=== PATIENT | male | born 1960 | race Caucasian/White ===

== ENCOUNTER 2024-05-20 10:22 | Inpatient (IN) | payer BC ==
[~2024-05-20] VITALS: Ht 182.9 cm; Wt 86.8 kg
[2024-05-20] MEDS ORDERED: metformin (10:32)
[2024-05-20] MEDS ORDERED: panadol (10:32)
[2024-05-20] MEDS ORDERED: GABPENTIN (10:32)
[2024-05-20] MEDS ORDERED: hydralazine (10:32)
[2024-05-20 11:23] LABS: BASOPHILS % 1.3 % (0.0-2.0); DIFFERENTIAL COMMENT 0; EOSINOPHILS % 0.2 % (0.0-5.0); LYMPHOCYTES % 9.4 % (20.0-50.0); MEAN CORPUSCULAR HEMOGLOBIN 24.6 pg (28.0-32.0); MEAN CORPUSCULAR VOLUME 79.3 fL (80.0-94.0); MEAN PLATELET VOLUME 7.3 fl (7.4-10.4); MONOCYTES % 9.5 % (2.0-8.0); NEUTROPHILS % 79.6 % (40.0-76.0); PLATELET 562 x1000/uL (130-400); RED BLOOD CELL COUNT 2.83 mill/uL (4.7-6.1); RED CELL DISTRIBUTION WIDTH 20.7 % (11.6-14.6); WHITE BLOOD COUNT 10.4 x1000/uL (4.5-11.0)
[2024-05-20 11:24] LABS: CHLORIDE 101 mEq/L (98-107); POTASSIUM 5.8 mEq/L (3.5-5.1); SODIUM 133 mEq/L (136-145)
[2024-05-20 11:25] LABS: CARBON DIOXIDE 20 mEq/L (21-32)
[2024-05-20 11:28] LABS: INR 1.2
[2024-05-20] MEDS: SODIUM CHLORIDE 0.9% 1,000 ML IV ONE (11:28)
[2024-05-20 11:29] LABS: HEMATOCRIT. 22.4 % (42.0-52.0)
[2024-05-20 11:30] LABS: AMMONIA < 17 uMol/L (<32); CREATININE 2.3 mg/dL (0.6-1.3); GLUCOSE 113 mg/dL (70-105); TROPONIN I HIGH SENSITIVITY 21 ng/L (3.0-53); UREA NITROGEN BLOOD 40 mg/dL (9-23)
[2024-05-20 11:32] LABS: ACETAMINOPHEN < 2 ug/mL (10-30); ALANINE AMINOTRANSFERASE 24 IU/L (10-49); ALBUMIN 3.7 g/dL (3.2-4.8); ASPARTATE AMINOTRANSFERASE 35 IU/L (<34); BILIRUBIN TOTAL 0.4 mg/dL (0.1-1.0); PROTEIN TOTAL 7.5 g/dL (6.0-8.3)
[2024-05-20 11:34] LABS: THYROID STIMULATING HORMONE 1.42 uIU/mL (0.55-4.78)
[2024-05-20 11:38] LABS: ETHANOL BLOOD < 10 mg/dL (<10)
[2024-05-20] MEDS ORDERED: FUROSEMIDE 100MG/10ML VIAL IV STA (13:36)
[2024-05-20 13:38] LABS: TROPONIN I HIGH SENSITIVITY 26 ng/L (3.0-53)
[2024-05-20] MEDS: ALBUTEROL (0.083%) 2.5MG/3ML NEB HHN ONE (13:45)
[2024-05-20] MEDS: CALCIUM CHLORIDE 1GM/10ML SYR IV ONE (14:14)
[2024-05-20] MEDS: DEXTROSE 50% WATER 50ML SYRINGE IV ONE (14:14)
[2024-05-20] MEDS: INSULIN REGULAR (HUMULIN R) 1000UNITS/10ML VIAL IV ONE (14:14)
[2024-05-20] MEDS: FUROSEMIDE 40MG/4ML VIAL IV NR (14:14)
[2024-05-20 15:34] LABS: POTASSIUM 4.4 mEq/L (3.5-5.1)
[2024-05-20 22:09] LABS: CLARITY URINE CLOUDY (CLEAR); COLOR URINE YELLOW (YELLOW); GLUCOSE URINE 3+ (NEGATIVE); KETONES URINE NEGATIVE (NEGATIVE); LEUKOCYTE ESTERASE URINE NEGATIVE (NEGATIVE); NITRITE URINE NEGATIVE (NEGATIVE); OCCULT BLOOD URINE NEGATIVE (NEGATIVE); PROTEIN URINE 1+ (NEGATIVE); SPECIFIC GRAVITY URINE 1.019 (1.005-1.030)
[2024-05-20 22:18] LABS: *AMPHETAMINES SCREEN URINE NEGATIVE (NEGATIVE)
[2024-05-20 22:19] LABS: *BARBITURATES SCREEN URINE NEGATIVE (NEGATIVE); *BENZODIAZEPINES SCREEN URINE NEGATIVE (NEGATIVE); *COCAINE SCREEN URINE NEGATIVE (NEGATIVE); CANNABINOID URINE SCREEN PRESUMPTIVE POSITIVE (NEGATIVE); ECSTASY MDMA SCREEN URINE NEGATIVE (NEGATIVE); METHADONE URINE SCREEN NEGATIVE (NEGATIVE); OPIATES URINE SCREEN PRESUMPTIVE POSITIVE (NEGATIVE); PHENCYCLIDINE URINE SCREEN NEGATIVE (NEGATIVE)
[2024-05-20 22:25] LABS: COARSE GRANULAR CASTS URINE 0-5 /lpf
[2024-05-20 22:26] LABS: BACTERIA URINE TRACE; SQUAMOUS EPITHELIAL CELL URINE FEW /lpf (RARE/1+); WBC URINE 0-2 /hpf (0-2)
[2024-05-20 23:15] VITALS: BP 134/87; PULSE 85; RESP 12; RESP 14; TEMP 36.55848; TEMP 36.5848; O2SAT 98
[2024-05-21] MEDS ORDERED: CLONIDINE 0.1MG TABLET PO PRN (01:00)
[2024-05-21] MEDS ORDERED: DEXTROSE 50% WATER 50ML SYRINGE IV PRN (01:00)
[2024-05-21] MEDS: HYDROCODONE/ACETAMINOPHEN 5/325MG TABLET PO PRN (01:10)
[2024-05-21] MEDS ORDERED: NALOXONE HCL 0.4MG/ML VIAL IV PRN (01:15)
[2024-05-21 05:48] LABS: CHLORIDE 103 mEq/L (98-107); POTASSIUM 4.3 mEq/L (3.5-5.1); SODIUM 135 mEq/L (136-145)
[2024-05-21 05:49] LABS: CALCIUM 12.6 mg/dL (8.7-10.4); CARBON DIOXIDE 23 mEq/L (21-32)
[2024-05-21 05:53] LABS: CREATININE 1.9 mg/dL (0.6-1.3); IRON 34 ug/dL (65-175)
[2024-05-21 05:54] LABS: GLUCOSE 117 mg/dL (70-105); UREA NITROGEN BLOOD 35 mg/dL (9-23)
[2024-05-21 05:56] LABS: TOTAL IRON BINDING CAPACITY 388 ug/dl (250-425)
[2024-05-21 05:57] LABS: DIFFERENTIAL COMMENT 0; EOSINOPHILS % 0.6 % (0.0-5.0); HEMATOCRIT. 25.3 % (42.0-52.0); HEMOGLOBIN. 7.8 g/dL (14.0-18.0); LYMPHOCYTES % 10.6 % (20.0-50.0); MEAN CORPUSCULAR HEMOGLOBIN 24.7 pg (28.0-32.0); MEAN CORPUSCULAR HGB CONC 30.8 g/dL (31.0-37.0); MEAN CORPUSCULAR VOLUME 80.1 fL (80.0-94.0); MEAN PLATELET VOLUME 7.1 fl (7.4-10.4); MONOCYTES % 9.9 % (2.0-8.0); NEUTROPHILS % 77.9 % (40.0-76.0); PLATELET 529 x1000/uL (130-400); RED BLOOD CELL COUNT 3.16 mill/uL (4.7-6.1); RED CELL DISTRIBUTION WIDTH 20.6 % (11.6-14.6); WHITE BLOOD COUNT 11.2 x1000/uL (4.5-11.0)
[2024-05-21 06:05] LABS: VITAMIN B12 SERUM 831 pg/mL (211-911)
[2024-05-21 08:00] VITALS: BP 148/95; PULSE 101; RESP 12; TEMP 36.114; O2SAT 97
[2024-05-21] MEDS: INSULIN LISPRO 100 UNITS/ML SUBCUT SCH (08:00)
[2024-05-21] MEDS: LACTULOSE 20G/30ML UDC PO SCH (08:10)
[2024-05-21] MEDS: PANTOPRAZOLE 40MG DR TABLET PO SCH (08:10)
[2024-05-21] MEDS: BLOOD SUGAR DIAGNOSTIC STRIP TEST SCH (08:10)
[2024-05-21] MEDS: DEXT 5%/0.45% NACL 1000ML 1,000 ML IV SCH (11:26)
[2024-05-21 12:00] VITALS: PULSE 96; RESP 14; TEMP 36.22512; O2SAT 98
[2024-05-21 16:09] VITALS: PULSE 91; RESP 13; TEMP 36.50292; O2SAT 95
[2024-05-21 20:00] VITALS: BP 105/80; PULSE 89; RESP 14; TEMP 37.16964; O2SAT 96
[2024-05-22] VITALS: TEMP 37.2252
[2024-05-22 04:00] VITALS: TEMP 36.6696
[2024-05-22 08:00] VITALS: TEMP 36.61404
[2024-05-22 09:01] VITALS: RESP 14
[2024-05-22 10:00] VITALS: TEMP 36.78072
[2024-05-22 11:24] LABS: BASOPHILS % 0.8 % (0.0-2.0); DIFFERENTIAL COMMENT 0; EOSINOPHILS % 0.4 % (0.0-5.0); HEMATOCRIT. 25.8 % (42.0-52.0); HEMOGLOBIN. 7.8 g/dL (14.0-18.0); LYMPHOCYTES % 8.4 % (20.0-50.0); MEAN CORPUSCULAR HGB CONC 30.3 g/dL (31.0-37.0); MEAN CORPUSCULAR VOLUME 79.1 fL (80.0-94.0); MEAN PLATELET VOLUME 6.9 fl (7.4-10.4); MONOCYTES % 7.6 % (2.0-8.0); NEUTROPHILS % 82.8 % (40.0-76.0); PLATELET 538 x1000/uL (130-400); RED BLOOD CELL COUNT 3.27 mill/uL (4.7-6.1); RED CELL DISTRIBUTION WIDTH 20.9 % (11.6-14.6); WHITE BLOOD COUNT 11.4 x1000/uL (4.5-11.0)
[2024-05-22 11:29] LABS: POTASSIUM 3.9 mEq/L (3.5-5.1)
[2024-05-22 11:30] LABS: CALCIUM 12.1 mg/dL (8.7-10.4)
[2024-05-22 11:35] LABS: CREATININE 1.6 mg/dL (0.6-1.3)
[2024-05-22] MEDS ORDERED: ATOR40TA70 PO (14:33)
[2024-05-22] MEDS ORDERED: OMEP20CA14 PO (14:33)
[2024-05-22] MEDS ORDERED: VALS40TA11 PO (14:33)
[2024-05-22] MEDS ORDERED: MIRT7.5T11 PO (14:33)
[2024-05-22] MEDS ORDERED: HYDR25TA78 PO (14:33)
[2024-05-22] MEDS ORDERED: DAPA10TA PO (14:33)
[2024-05-22] MEDS ORDERED: AMLO10TA80 PO (14:33)
[2024-05-22 15:08] VITALS: BP 108/65; PULSE 99; TEMP 98; O2SAT 99
== END 2024-05-22 18:16 | disposition home health service (06) | DRG 812 ==
LOC: ER 11:27 → EDBEDREQ 13:11 → 5EST 23:40
PROVIDERS: ADMIT Internal Medicine; ATTEND Internal Medicine
PROC: 30233N1 Transfusion of Nonautologous Red Blood Cells into Peripheral Vein, Percutaneous Approach (ICD-10-PCS; 2024-05-20)
PROC: 0W9B3ZZ Drainage of Left Pleural Cavity, Percutaneous Approach (ICD-10-PCS; principal; 2024-05-22)
DX: D50.9 Iron deficiency anemia, unspecified (principal); N17.9 Acute kidney failure, unspecified; E83.52 Hypercalcemia; E86.1 Hypovolemia; E87.5 Hyperkalemia; S31.811A Laceration without foreign body of right buttock, initial encounter; E11.9 Type 2 diabetes mellitus without complications; I10 Essential (primary) hypertension; X58.XXXA Exposure to other specified factors, initial encounter; I95.9 Hypotension, unspecified; D64.9 Anemia, unspecified; Z51.5 Encounter for palliative care; Z85.528 Personal history of other malignant neoplasm of kidney; Y93.89 Activity, other specified; Y92.89 Other specified places as the place of occurrence of the external cause; Y99.8 Other external cause status
CPT/HCPCS: 32555; 36415; 71045; 74176; 80048; 80053; 80305; 80307; 80320; 80329; 81003; 82140; 82607; 82962; 83036; 83540; 83550; 83605; 84132; 84153; 84443; 84484; 85025; 86850; 86900; 86920; 93005; 97162; 99291; J1815; J1940; J3490; J7030; P9016; G0480